=== PATIENT | male | born 1960 | race Caucasian/White ===

== ENCOUNTER 2016-11-20 13:25 | Outpatient (CLI) | payer MEDICARE, OTHER ==
[~2016-11-20 13:25] MED LIST: ABILIFY10 MG ORAL; AMLODIPINE BES2.5 MG ORAL; ASPIR 8181 MG ORAL; ATIVAN2 MG ORAL; BENAZEPRIL HCL20 MG ORAL; COLACE100 MG ORAL; CYCLOBENZAPRINE10 MG ORAL; FERROUS SULFAT325 MG ORAL; FOLIC ACID1 MG ORAL; HARVONI 90-4001 EACH PO; LAMICTAL100 MG ORAL; MIRTAZAPINE30 MG ORAL; OMEPRAZOLE20 M3 ORAL; OXYCODONE HCL15 M1 ORAL; RESTORIL30 MG ORAL; RIBAVIRIN200 M1 ORAL; STIOLTO RESPIMAT4 GM IH; TENORMIN50 MG ORAL; TRAMADOL HCL50 MG ORAL; WELLBUTRIN XL150 MG ORAL
--- NOTE | 2016-11-20 14:10 | Diagnostic Imaging Report ---
Indication: Dyspnea Comparison: 03/25/15 2 views of the chest obtained. Findings: Cardiomediastinal silhouette and pulmonary vascularity are within normal limits for age. The diaphragmatic contour is smooth and costophrenic angles are sharp. No pleural effusions are identified. The bones are unremarkable. Impression: No acute disease
== END 2016-11-20 14:55 | disposition home or self-care (01) ==
LOC: RAD 13:25
DX: R05 Cough (principal)
CPT/HCPCS: 71020

== ENCOUNTER → 2018-04-12 | Outpatient (CLI) | payer MEDICARE, OTHER ==
--- NOTE | 2018-04-12 14:07 | Diagnostic Imaging Report ---
Indication: Dyspnea Technique: Continuous helical transaxial imaging of the chest was obtained from the thoracic inlet to the upper abdomen. No intravenous contrast was administered. Coronal 2-D reformats were also obtained. Total Dose length Product (DLP): 1877.[address] Dose Index Volume (CTDIvol): 47.94 mGy Comparison: none Findings: Lungs are clear. No consolidated airspace opacities or interstitial disease identified. No pleural effusion seen. Mild calcific lesion of aorta noted. No adenopathy identified within the chest. Visualized part of the upper abdomen shows nodularity of the liver, sinus cirrhosis. IMPRESSION: Negative CT of the chest done without contrast material. Suspected cirrhosis of the liver. Correlate clinically. Mild atherosclerotic disease The CT scanner at [facility] is accredited by the [employer] and the scans are performed using dose optimization techniques as appropriate to a performed exam including Automatic Exposure control.
== END | disposition home or self-care (01) ==
LOC: CAT 14:03
DX: R06.02 Shortness of breath (principal)
CPT/HCPCS: 71250